=== PATIENT | female | born 1950 | race Caucasian/White ===

== ENCOUNTER 2016-09-26 06:28 | Day surgery (SDC) | payer MEDICARE, OTHER ==
[~2016-09-26 06:28] MED LIST: ATIVAN0.5 M1 PO; BENADRYL25 M3 PO; CALCIUM WITH V1 EAC2 PO; CPAP; FLUTICASONE PRO30 GM TOP; IBUPROFEN200 M2 PO; MELATONIN5 M5 PO; PREMARIN30 GM VG; REFRESH OPTIVE15 ML EACH EYE; REFRESH PLUS1 EACH EACH EYE; TYLENOL PO
== END 2016-09-26 15:25 ==
LOC: SRG 06:28 → SHSB 06:29 → ORW 10:58 → PACU 11:57 → SHSB 12:50
PROC: 07B63ZX Excision of Left Axillary Lymphatic, Percutaneous Approach, Diagnostic (ICD-10-PCS; principal; 2016-09-26)
DX: R59.0 Localized enlarged lymph nodes (principal); F41.9 Anxiety disorder, unspecified; F32.9 Major depressive disorder, single episode, unspecified; G47.00 Insomnia, unspecified; G47.30 Sleep apnea, unspecified; K44.9 Diaphragmatic hernia without obstruction or gangrene; M19.90 Unspecified osteoarthritis, unspecified site; M85.80 Other specified disorders of bone density and structure, unspecified site; Z79.899 Other long term (current) drug therapy; Z88.0 Allergy status to penicillin; Z98.51 Tubal ligation status; Z90.710 Acquired absence of both cervix and uterus
CPT/HCPCS: J0690; J1170; J2550; J2765; J3010